=== PATIENT | female | born 1985 | race Caucasian/White ===

== ENCOUNTER → 2017-11-03 | Outpatient (CLI) | payer BC ==
[~2017-11-03] MED LIST: BIRTH CONTROL PILL; FERGON324 MG PO; Motrin PO; Percocet 5/325,Endoc PO
== END | disposition home or self-care (01) ==
LOC: AMB 11:30
DX: Z45.2 Encounter for adjustment and management of vascular access device (principal); I87.8 Other specified disorders of veins